=== PATIENT | female | born 1955 | race Caucasian/White ===

== ENCOUNTER 2021-02-14 05:02 | Inpatient (IN) | payer OTHER ==
[2021-02-14] MEDS ORDERED: BUPIVACAINE HCL 100 ML ONE (07:54)
[2021-02-14] MEDS ORDERED: BUPIVACAINE LIPOSOME/PF (EXPAREL) 266 MG/20 ML VIAL ONE (07:54)
[2021-02-14] MEDS ORDERED: MIDAZOLAM HCL 2 MG/2 ML SINGLE DOSE VIAL ONE ×2 (08:01)
[2021-02-14] MEDS ORDERED: ceFAZolin SODIUM 1 GM VIAL ONE ×2 (08:04→08:59)
[2021-02-14] MEDS ORDERED: ROCURONIUM BROMIDE 50 MG/5 ML SYRINGE ONE (08:38)
[2021-02-14] MEDS ORDERED: LIDOCAINE HCL/PF 2% SDV 5ML VIAL ONE (08:38)
[2021-02-14] MEDS ORDERED: PROPOFOL 20 ML ONE (08:39)
[2021-02-14] MEDS ORDERED: ceFAZolin SODIUM 1 GM VIAL IVPB ONE (09:01)
[2021-02-14] MEDS ORDERED: KETOROLAC TROMETHAMINE 30 MG/1 ML VIAL ONE (09:09)
[2021-02-14] MEDS ORDERED: NEOSTIGMINE METHYLSULFATE 0.5 MG/ML - 10 ML MDV ONE (09:09)
[2021-02-14] MEDS ORDERED: GLYCOPYRROLATE 0.2 MG/1 ML VIAL ONE (09:09)
[2021-02-14] MEDS ORDERED: ACETAMINOPHEN INJECTION 100 ML IVPB ONE (09:14)
[2021-02-14] MEDS ORDERED: ONDANSETRON 4 MG/2 ML VIAL IVPUSH PRN (11:05)
[2021-02-14] MEDS ORDERED: oxyCODONE HCL 5 MG TABLET PO PRN (11:05)
[2021-02-14] MEDS: LACTATED RINGERS SOLUTION 1,000 ML IV SCH ×2 (16:05→23:05)
[2021-02-14] MEDS: oxyCODONE HCL 5 MG TABLET PO PRN (22:58)
[2021-02-14] MEDS: DOCUSATE SODIUM 100 MG CAPSULE (FP) PO SCH (23:00)
[2021-02-15] MEDS: oxyCODONE HCL 5 MG TABLET PO PRN ×4 (06:24→21:50)
[2021-02-15] MEDS: LACTATED RINGERS SOLUTION 1,000 ML IV SCH ×3 (06:49→20:06)
[2021-02-15] MEDS ORDERED: PT OWN MED DRAWER 7, Y5N ONE ×2 (09:35→14:49)
[2021-02-15] MEDS: DOCUSATE SODIUM 100 MG CAPSULE (FP) PO SCH ×2 (09:53→21:50)
[2021-02-15] MEDS: ASPIRIN 81 MG CHEWABLE TABLETS PO SCH (09:53)
[2021-02-15] MEDS ORDERED: MECLIZINE HCL 25 MG TABLET (FP) PO PRN (12:47)
[2021-02-15 17:22] VITALS: BMI 34.7
[2021-02-16] MEDS: LACTATED RINGERS SOLUTION 1,000 ML IV SCH ×3 (06:15→22:10)
[2021-02-16 07:47] LABS: BASO % 0.4 % (0-2.0); EOS % 1.2 % (0-4.5); HEMATOCRIT 33.3 % (32.4-45.2); HEMOGLOBIN 11.3 GM/dL (10.7-15.3); LYMPH % 21.1 % (8-40); MCH 31.1 pg (25.7-33.7); MCHC 34.1 g/dl (32.0-36.0); MEAN CELL VOLUME 91.3 fl (80-96); MEAN PLT VOLUME 8.2 fl (7.5-11.1); MONO % 9.8 % (3.8-10.2); NEUT % 67.5 % (42.8-82.8); PLATELET COUNT 174 K/MM3 (134-434); RBC 3.65 M/mm3 (3.60-5.2); RDW 13.1 % (11.6-15.6); WHITE BLOOD COUNT 7.5 K/mm3 (4.0-10.0)
[2021-02-16 08:38] LABS: ALBUMIN 2.7 g/dl (3.4-5.0); BLOOD UREA NITROGEN 11.4 mg/dL (7-18); CALCIUM 8.2 mg/dL (8.5-10.1)
[2021-02-16 08:41] LABS: CREATININE 0.6 mg/dL (0.55-1.3)
[2021-02-16 08:42] LABS: BILIRUBIN,TOTAL 1.2 mg/dL (0.2-1)
[2021-02-16 08:44] LABS: TOT PROT 5.6 g/dl (6.4-8.2)
[2021-02-16] MEDS: ASPIRIN 81 MG CHEWABLE TABLETS PO SCH (09:23)
[2021-02-16] MEDS: DOCUSATE SODIUM 100 MG CAPSULE (FP) PO SCH ×2 (09:23→22:11)
[2021-02-16] MEDS: ACETAMINOPHEN 500 MG TABLET (FP) PO PRN ×2 (09:24→14:11)
[2021-02-16] MEDS: ENOXAPARIN NA (PORCINE) 40 MG/0.4 ML DISP.SYRIN SQ SCH ×2 (09:24→09:30)
[2021-02-16] MEDS ORDERED: BISACODYL 10 MG SUPP.RECT PR ONE (12:56)
[2021-02-16] MEDS ORDERED: ACETAMINOPHEN 1000 MG/100 ML VIAL (NON FORMULARY) IVPB PRN (20:28)
[2021-02-17 08:08] LABS: BASO % 0.5 % (0-2.0); EOS % 3.1 % (0-4.5); HEMATOCRIT 34.1 % (32.4-45.2); HEMOGLOBIN 11.6 GM/dL (10.7-15.3); LYMPH % 25.5 % (8-40); MCH 30.7 pg (25.7-33.7); MEAN CELL VOLUME 90.5 fl (80-96); MONO % 7.2 % (3.8-10.2); NEUT % 63.7 % (42.8-82.8); PLATELET COUNT 195 K/MM3 (134-434); RBC 3.77 M/mm3 (3.60-5.2); RDW 12.9 % (11.6-15.6); WHITE BLOOD COUNT 5.7 K/mm3 (4.0-10.0)
[2021-02-17 08:25] LABS: ALBUMIN 2.6 g/dl (3.4-5.0)
[2021-02-17 08:26] LABS: BLOOD UREA NITROGEN 8.7 mg/dL (7-18); CALCIUM 8.5 mg/dL (8.5-10.1)
[2021-02-17 08:28] LABS: CREATININE 0.6 mg/dL (0.55-1.3)
[2021-02-17 08:30] LABS: TOT PROT 5.8 g/dl (6.4-8.2)
[2021-02-17] MEDS: ENOXAPARIN NA (PORCINE) 40 MG/0.4 ML DISP.SYRIN SQ SCH (10:39)
[2021-02-17] MEDS: DOCUSATE SODIUM 100 MG CAPSULE (FP) PO SCH (10:39)
[2021-02-17] MEDS: ASPIRIN 81 MG CHEWABLE TABLETS PO SCH (10:39)
[2021-02-17] MEDS: LACTATED RINGERS SOLUTION 1,000 ML IV SCH (10:40)
[2021-02-17] MEDS ORDERED: ACETAMINOPHEN 325 MG TABLET (FP) PO PRN (13:00)
[2021-02-17 16:12] VITALS: BP 125/70; PULSE 76; TEMP 97.7
[2021-02-17] MEDS ORDERED: BISACODYL 10 MG SUPP.RECT PR ONE (17:45)
== END 2021-02-17 20:01 | disposition home or self-care (01) | DRG 336 ==
LOC: JASUSAT 05:02 → JASU-SURG 05:02 → J8W 15:11 → JASUSAT 15:12 → J8W 02-15 12:46
PROVIDERS: ADMIT Internal Medicine; ATTEND Internal Medicine
PROC: 0DNW4ZZ Release Peritoneum, Percutaneous Endoscopic Approach (ICD-10-PCS; 2021-02-14)
PROC: 0DNU4ZZ Release Omentum, Percutaneous Endoscopic Approach (ICD-10-PCS; 2021-02-14)
PROC: 8E0W4CZ Robotic Assisted Procedure of Trunk Region, Percutaneous Endoscopic Approach (ICD-10-PCS; 2021-02-14)
PROC: 0WUF4JZ Supplement Abdominal Wall with Synthetic Substitute, Percutaneous Endoscopic Approach (ICD-10-PCS; principal; 2021-02-14 08:30)
DX: K43.6 Other and unspecified ventral hernia with obstruction, without gangrene (principal); K56.7 Ileus, unspecified; K66.0 Peritoneal adhesions (postprocedural) (postinfection); K43.0 Incisional hernia with obstruction, without gangrene; K42.0 Umbilical hernia with obstruction, without gangrene
CPT/HCPCS: 36415; 74019-TC-FY; 80053; 85025; 88305-TC; 94760; C9803; J0131; U0003; U0005